=== PATIENT | male | born 1995 | race Caucasian/White ===

== ENCOUNTER 2018-10-01 14:30 | Outpatient (CLI) | payer BC, OTHER ==
--- NOTE | 2018-10-01 15:03 | ULT ---
Exam: Testicular ultrasound HISTORY: Palpable focus in the right testicle. Evaluate for mass. COMPARISON: None TECHNIQUE: Sagittal and transverse imaging of the left and right hemiscrotum are performed. Testicula r Doppler is performed with grayscale, color-flow, Doppler imaging and spectral waveform analysis. FINDINGS: Right hemiscrotum: Testicle: Homogeneous echotexture. No intratesticular masses. Right testicle measurements: 2.2 x 4.4 x 3.7 cm Right epididymis: Normal echotexture. Right epididymis measurements: 3.1 x 0.6 x 0.6 cm Hydrocele: Multiple small echogenic foci within the small amount of fluid in the right hemiscrotum. Left hemiscrotum: Left testicle: Homogeneous echotexture. No intratesticular masses. Left testicle measurements: 3.3 x 2.2 x 4.7 cm Left epididymis: 0.5 cm anechoic focus likely representing a small cyst. Left epididymis measurements:0.9 x 0.7 x 2.2 cm Hydrocele: None Testicular Doppler: There is symmetric vascular flow to the left and right testicle. . IMPRESSION: 1. Slightly complex fluid in the right hemiscrotum compatible with complex hydrocele. Consider urolog y consultation. 2. No evidence of a right or left intratesticular mass. 2. Incidental small left epididymal cysts. Transcribed Date/Time: 10/01/2018 3:11 PM
== END 2018-10-01 14:31 | disposition home or self-care (01) ==
LOC: BICULT 14:30
PROVIDERS: ATTEND Family Medicine
DX: N50.89 Other specified disorders of the male genital organs (principal); N43.3 Hydrocele, unspecified
CPT/HCPCS: 76870; 93976